=== PATIENT | male | born 1970 | race Caucasian/White ===

== ENCOUNTER 2019-10-04 00:19 | Emergency (ER) | payer BC ==
[~2019-10-04] VITALS: Ht 190.5 cm; Wt 88.0 kg
[2019-10-04 00:35] VITALS: BP 131/81
[2019-10-04] MEDS ORDERED: sulfamethoxazole/trimethoprim DS (800/160mg) tablet PO ONE (01:25)
[2019-10-04] MEDS ORDERED: SULF1TAB49 PO (01:38)
== END 2019-10-04 03:19 | disposition home or self-care (01) ==
LOC: ER 00:20
DX: L03.012 Cellulitis of left finger (principal); F17.200 Nicotine dependence, unspecified, uncomplicated; Z88.0 Allergy status to penicillin; Z79.899 Other long term (current) drug therapy
CPT/HCPCS: 10060; 99283